=== PATIENT | male | born 1985 | race African-American/Black ===

== ENCOUNTER 2017-12-31 00:29 | Emergency (ER) | payer BC ==
[~2017-12-31] VITALS: Ht 177.8 cm; Wt 95.3 kg
--- NOTE | ~2017-12-31 | EKG ---
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 12/31/17 0717 Nile Molina MD, [facility] /EPI
[~2017-12-31 00:29] MED LIST: EAR DROPS15 ML OT; IBUPROFEN 600600 M1 PO; NORCO 5-325 TA1 EACH PO
[2017-12-31] MEDS ORDERED: ALEVE220 MG PO (00:36)
[2017-12-31 00:59] LABS: ABSOLUTE NEUTROPHILS 1.8 thou/uL (1.4-8.2); BASOPHILS 0.7 % (0.0-2.0); EOSINOPHILS 1.7 % (0.0-3.0); HEMATOCRIT 42.9 % (42.0-52.0); HEMOGLOBIN 14.3 gm/dL (14.0-18.0); LYMPHOCYTES 58.3 % (24.0-44.0); MCH 28.9 pg (26.0-34.0); MCHC 33.3 g/dL (28.0-37.0); MCV 86.6 fL (80.0-100.0); MONOCYTES 7.5 % (1.0-8.0); PLATELET COUNT 290 thou/uL (150-400); POLYS 31.8 % (36.0-66.0); RBC 4.95 mil/uL (4.50-6.00); RDW 13.5 % (10.5-14.5); WBC 5.6 thou/uL (4.0-11.0)
[2017-12-31 01:01] LABS: ANION GAP 13 mmol/L (7-16); BUN 13 mg/dL (7-18); CALCIUM 9.2 mg/dL (8.5-10.1); CHLORIDE 102 mmol/L (98-107); CO2 28 mmol/L (21-32); CREATININE 1.1 mg/dL (0.7-1.3); GLUCOSE 112 mg/dL (74-106); POTASSIUM 3.6 mmol/L (3.5-5.1); SODIUM 143 mmol/L (136-145)
[2017-12-31 01:09] LABS: MAGNESIUM 1.5 mg/dL (1.8-2.4); TROPONIN-I < 0.04 ng/mL (<0.06)
[2017-12-31] MEDS ORDERED: MAG-OXIDE400 MG PO (03:02)
[2017-12-31 03:22] VITALS: BP 134/80
== END 2017-12-31 03:23 | disposition home or self-care (01) ==
LOC: ER 00:29
PROVIDERS: Emergency Medicine
DX: R00.2 Palpitations (principal); E83.42 Hypomagnesemia

== ENCOUNTER 2018-12-24 11:25 | Emergency (ER) | payer BC ==
[~2018-12-24] VITALS: Ht 175.3 cm; Wt 99.8 kg
[~2018-12-24 11:25] MED LIST changes: +ALEVE220 MG PO; +MAG-OXIDE400 MG PO
[2018-12-24] MEDS ORDERED: NORCO 5-325 TA1 EACH PO (11:31)
[2018-12-24] MEDS ORDERED: SINGULAIR 10 MG10 M1 PO (11:31)
[2018-12-24] MEDS ORDERED: AMOXICILLIN 50500 MG PO (11:32)
[2018-12-24] MEDS ORDERED: VENTOLIN HFA 1818 GM INH (11:32)
[2018-12-24] MEDS ORDERED: CYCLOBENZAPRINE5 MG PO (12:14)
[2018-12-24] MEDS ORDERED: ULTRAM 50MG TAB50 MG PO (12:14)
[2018-12-24] MEDS ORDERED: LIDOCAINE PAIN1 EACH TRANSDERM (12:14)
[2018-12-24 12:43] VITALS: BP 159/103
== END 2018-12-24 12:43 | disposition home or self-care (01) ==
LOC: ER 11:25
DX: M62.830 Muscle spasm of back (principal); M54.6 Pain in thoracic spine; J45.909 Unspecified asthma, uncomplicated; F17.210 Nicotine dependence, cigarettes, uncomplicated

== ENCOUNTER 2018-12-25 06:35 | Emergency (ER) | payer BC ==
[~2018-12-25] VITALS: Ht 175.3 cm; Wt 99.8 kg
[~2018-12-25 06:35] MED LIST changes: +AMOXICILLIN 50500 MG PO; +CYCLOBENZAPRINE5 MG PO; +LIDOCAINE PAIN1 EACH TRANSDERM; +SINGULAIR 10 MG10 M1 PO; +ULTRAM 50MG TAB50 MG PO; +VENTOLIN HFA 1818 GM INH
[2018-12-25 07:18] LABS: ABSOLUTE NEUTROPHILS 2.6 thou/uL (1.4-8.2); BASOPHILS 0.7 % (0.0-2.0); EOSINOPHILS 2.7 % (0.0-3.0); HEMATOCRIT 40.2 % (42.0-52.0); HEMOGLOBIN 13.5 gm/dL (14.0-18.0); LYMPHOCYTES 47.8 % (24.0-44.0); MCH 29.4 pg (26.0-34.0); MCHC 33.6 g/dL (28.0-37.0); MCV 87.4 fL (80.0-100.0); MONOCYTES 7.7 % (1.0-8.0); PLATELET COUNT 289 thou/uL (150-400); POLYS 41.1 % (36.0-66.0); WBC 6.2 thou/uL (4.0-11.0)
[2018-12-25 07:28] LABS: ANION GAP 6 mmol/L (7-16); BUN 13 mg/dL (7-18); CALCIUM 9.3 mg/dL (8.5-10.1); CHLORIDE 102 mmol/L (98-107); CO2 30 mmol/L (21-32); GLUCOSE 137 mg/dL (74-106); POTASSIUM 3.9 mmol/L (3.5-5.1)
[2018-12-25 07:29] LABS: SODIUM 138 mmol/L (136-145)
[2018-12-25 07:37] LABS: LIPASE 131 U/L (73-393); TROPONIN-I <0.06 ng/mL (<0.06)
--- NOTE | 2018-12-25 08:10 | EKG ---
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1985 Requested By: David Vences Order Number: [id number] MD: Nile Molina Measurements Intervals [place] Rate: 62 P: 15 FL: 148 QRS: -19 QRSD: 105 T: 8 QT: 430 QTc: 437 Interpretive Statements Sinus rhythm Borderline left axis deviation RSR' in V1 or V2, probably normal variant Compared to ECG 12/31/2017 00:33:54 No significant change was found Electronically Signed On 12-25-2018 8:09:47 CDT by Nile Molina [email or web address] ��������������������������������������������� <ELECTRONICALLY SIGNED> ���������������������������������������� By: Nile Molina MD, [facility] ��������������������������������������������� 12/25/18 0809 4 4 Nile Molina MD, [facility] /EPI
[2018-12-25 08:50] LABS: URINE BILIRUBIN NEGATIVE (Negative); URINE BLOOD NEGATIVE (Negative); URINE CLARITY CLEAR; URINE COLOR YELLOW; URINE GLUCOSE-RANDOM* NEGATIVE (Negative); URINE KETONES NEGATIVE (Negative); URINE LEUKOCYTES NEGATIVE (Negative); URINE NITRITE NEGATIVE (Negative); URINE PROTEIN (DIPSTICK) NEGATIVE (Negative); URINE SPECIFIC GRAVITY 1.015 (1.005-1.035)
[2018-12-25 09:14] VITALS: BP 138/97
== END 2018-12-25 09:14 | disposition home or self-care (01) ==
LOC: ER 06:35
PROVIDERS: Emergency Medicine
DX: M54.6 Pain in thoracic spine (principal); J45.909 Unspecified asthma, uncomplicated; F17.210 Nicotine dependence, cigarettes, uncomplicated

== ENCOUNTER 2020-01-19 15:42 | Emergency (ER) | payer BC ==
[~2020-01-19] VITALS: Ht 175.3 cm; Wt 99.8 kg
[2020-01-19 17:11] VITALS: BP 147/97
== END 2020-01-19 17:11 | disposition home or self-care (01) ==
LOC: ER 15:42
DX: R05 Cough (principal); R06.02 Shortness of breath; J45.909 Unspecified asthma, uncomplicated; Z20.828 Contact with and (suspected) exposure to other viral communicable diseases; F17.210 Nicotine dependence, cigarettes, uncomplicated; Z98.890 Other specified postprocedural states; Z79.899 Other long term (current) drug therapy; Z79.2 Long term (current) use of antibiotics

== ENCOUNTER 2021-07-03 17:06 | Emergency (ER) | payer BC ==
[~2021-07-03] VITALS: Ht 175.3 cm; Wt 104.3 kg
[2021-07-03] MEDS ORDERED: PREDNISONE 20 M20 MG PO (17:55)
[2021-07-03 18:15] VITALS: BP 148/90
== END 2021-07-03 18:16 | disposition home or self-care (01) ==
LOC: ER 17:06
PROVIDERS: Emergency Medicine
DX: J06.9 Acute upper respiratory infection, unspecified (principal); Z20.822 Contact with and (suspected) exposure to COVID-19; J45.909 Unspecified asthma, uncomplicated; F17.210 Nicotine dependence, cigarettes, uncomplicated; Z86.16 Personal history of COVID-19; Z98.890 Other specified postprocedural states; Z79.1 Long term (current) use of non-steroidal anti-inflammatories (NSAID); Z79.891 Long term (current) use of opiate analgesic; Z79.51 Long term (current) use of inhaled steroids; Z79.899 Other long term (current) drug therapy